=== PATIENT | female | born 1945 | race Caucasian/White ===

== ENCOUNTER → 2019-10-05 | Outpatient (CLI) | payer OTHER ==
[~2019-10-05] MED LIST: ASA81BEC PO; ASPIRIN325 PO; BENADRYL25 MG PO; CELEBREX 200 M200 M1 PO; COLACE100 MG PO; DUREZOL5 ML OP; ESTRADIOL42.5 GM VAG; FLUOCINONI0.05 %/30 TOP; ILEVRO1.7 ML OP; LEVOTHYROXIN0.112 M1 PO; LIPITOR 20 MG T20 M1 PO; MEGA BIOTIN10000 MCG PO; MULTIPLE VITAM1 EAC2 PO; NEURONTIN 300300 M1 PO; NEURONTIN 300M300 M2 PO; PERCOCET PO; PRESERVISION A1 EAC2 PO; PROTONIX40 M1 PO; TYLENOL325 MG PO; XARELTO10 MG PO; ZYRTEC10 M4 PO
== END ==
LOC: M.LAB 09:54
PROVIDERS: ATTEND Internal Medicine Gastroenterology
DX: Z01.812 Encounter for preprocedural laboratory examination (principal); Z11.59 Encounter for screening for other viral diseases

== ENCOUNTER → 2019-10-10 | Day surgery (SDC) | payer OTHER ==
--- NOTE | ~2019-10-10 | PROC ---
[facility] [address] [place] [address] PROCEDURE REPORT Name: MIGUEL HUANG Room: [facility].#: [id number] Admission: 10/10/19 Attend Phys: Rowdy Peoples DO Discharge: Date of : 43 Report #: [id number] THIS REPORT FOR: //name// cc: Kerrie Huang Tara DO ~ THIS REPORT FOR: //name// For GI report, please see the Provation report in Perceptive 7 content. By: 0705Medical Records Staff HECTOR /DREW
[2019-10-10 09:04] LABS: HEMATOCRIT 44.7 % (37.0-47.0); HEMOGLOBIN 15.1 gm/dL (12.0-15.0); MCH 31.4 pg (26.0-34.0); MCHC 33.8 g/dL (28.0-37.0); MCV 92.9 fL (80.0-100.0); RBC 4.82 mil/uL (4.20-5.00); RDW-CV 14.7 % (10.5-14.5); WBC 7.6 thou/uL (4.0-11.0)
[2019-10-10 09:08] LABS: CREATININE 1.1 mg/dL (0.6-1.3); POTASSIUM 3.8 mmol/L (3.5-5.1)
--- NOTE | 2019-10-10 10:51 | EKG ---
[place] [address] ELECTROCARDIOGRAM REPORT Name: MIGUEL HUANG Room: 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 : 1945 Requested By: Rowdy Peoples Order Number: [id number] Reading MD: Avila Welsh Measurements Intervals Reedy Rate: 140 P: NH: QRS: -33 QRSD: 99 T: -6 QT: 331 QTc: 505 Interpretive Statements Atrial fibrillation Left axis deviation Abnormal R-wave progression, late transition Repolarization abnormality, prob rate related Prolonged QT interval Baseline wander in lead(s) I,II,III,aVR,aVL,aVF,V2,V3,V4,V5,V6 Compared to ECG 12/04/14 Prolonged QT interval now present Sinus rhythm no longer present Electronically Signed On 10-10-2019 10:51:12 CDT by Avila Welsh [email or web address] <ELECTRONICALLY SIGNED> By: Avila Welsh MD, [facility] 10/10/19 1051 5 5 Avila Welsh MD, [facility] /EPI
--- NOTE | 2019-10-10 13:30 | NUR ---
Pt arrived and was noted on VS to be in A-fib RVR at rate of 144. EKG preformed and confirmed findings. Anes Dr. Cohen was notifed who placed colonoscopy on hold. Contacted Dr. Peoples and orders were given for consulting Cardiology and if needing to be admitted the Hospitalist. At 0940 I spoke with Martha from cardiology and she informed us that Dr. Welsh was on for consults and was in procedure. I had also told her that patient at this time was not having procedure. Pt then was noted on monitor to have converted back to sinus tach with rate of 95. Paged Dr. Diaz of possible admission and he came to see pt. 1045 Dr. Warren here to see pt and requested me to call Cardiology to get ETA of consult potential time. Called and left message for Martha. contacted Martha and Dr. Lind 3601 Dr. Lind came to see patient and OK'd pt for colonoscopy today and for her to follow up with Cardiology. Pt wants to use [facility] cardiology. I called Dr. Kerrie Puente's office and left message for Winifred. Faxed to Dr. West office the EKG and Lab request.
--- NOTE | 2019-10-10 16:36 | CON ---
[address] [address] CONSULTATION Name: MIGUEL PUENTE Room: [facility].#: [id number] Admission: 10/10/19 Attend Phys: Rowdy Peoples DO Discharge: Date of : 43 Report #: [id number] THIS REPORT FOR: //name// cc: Kerrie Puente Tara DO THIS REPORT FOR: //name// CC: Rwody Jimenez DO INDICATION: Atrial fibrillation with rapid ventricular response rate. HISTORY OF PRESENT ILLNESS: The patient is a very pleasant 73-year-old white female with no prior cardiac history. She was brought to the Preanesthesia Care Unit this morning for colonoscopy. She was found to be in atrial fibrillation with rapid ventricular response rate. With this, she notices some palpitations, but no chest pain or shortness of breath. She states this started at approximately 4:00 in the morning and persisted until arrival here. She spontaneously converted back to sinus rhythm while being observed. She denies any prior episodes similar to this. She takes atorvastatin for cholesterol. She denies any history of hypertension or diabetes. PAST MEDICAL HISTORY: Hyperlipidemia and hypothyroidism. She has degenerative joint disease. PAST SURGICAL HISTORY: Bilateral knee replacements and previous surgery for vulvar cancer. SOCIAL HISTORY: The patient is a nonsmoker. She does not drink alcohol. ALLERGIES: None documented. CURRENT MEDICATIONS: Tylenol p.r.n., atorvastatin 20 mg daily, aspirin 81 mg daily, Celebrex 20 mg daily, estrogen cream topically as directed, fluocinonide topically as directed, gabapentin 300 mg t.i.d., levothyroxine 112 mcg daily, multivitamin 1 tablet daily, PreserVision capsules daily. PHYSICAL EXAMINATION: VITAL SIGNS: Stable. Heart rate currently 70 and regular. Blood pressure 142/96. GENERAL: This is a pleasant lady in no distress. Mood and affect appropriate. HEENT: Extraocular muscles are intact. Mucous membranes are moist. NECK: Shows no jugular venous distention. CHEST: Reveals clear lung nuñez without wheezes or rales. CARDIOVASCULAR: Reveals a regular rhythm with normal S1 [place] [address] CONSULTATION Name: MIGUEL PUENTE Room: [facility]#: [id number] Admission: 10/10/19 Attend Phys: Rowdy Peoples DO Discharge: Date of : 43 Report #: [id number] appreciate gallop or murmur. ABDOMEN: Reveals normal bowel sounds. The abdomen is soft and nontender. EXTREMITIES: Shows no edema. SKIN: Dry. IMPRESSION AND RECOMMENDATIONS: 1. Paroxysmal atrial fibrillation. First episode. CHADS score is presently 1. 2. Follow up with [facility] Cardiology as an outpatient. She has reverted to normal sinus rhythm without intervention at this time. 3. Dyslipidemia, on atorvastatin daily. 4. The patient is scheduled for colonoscopy. She is cleared from a cardiac standpoint to proceed with colonoscopy and further cardiac evaluation at this time. <ELECTRONICALLY SIGNED> By: Mauri Lind MD, FACC 10/10/19 1636 1227 1242Miclo Lind MD, FACC /nt
--- NOTE | 2019-10-12 13:08 | PATH ---
[facility] [address] [place] [address] PATHOLOGY RPT PROCEDURE Name: MIGUEL PUENTE Room: [facility] M.R.#: [id number] Admission: 10/10/19 Date of : 43 Discharge: Report #: [id number] Path Case #: [id number] [facility] Accession Number: [id number] . 01 Material submitted: . PART A: colon - DISTAL SIGMOID POLYPS. Modifiers: distal, sigmoid PART B: rectum - RECTAL POLYP . 01 Clinical history: . Colon cancer screening . 02 Diagnosis: A. Distal sigmoid polyps: - One tubular adenoma and two segments of hyperplastic polyp(s), negative for high-grade dysplasia. . B. Rectal polyp: - Hyperplastic polyp. . (SONJA:madhavi; 10/12/2019) MBR 10/12/2019 1052 Local . 02 Electronically signed: . Phil Jessica MD, Pathologist NPI- [id number] . 01 Gross description: . A. The specimen is received in formalin, labeled "Miguel Puente, distal sigmoid polyps". Received are three segments of pale kuhn soft tissue ranging in size from 0.3 to 1.0 cm in maximum dimensions. The specimen is submitted entirely in cassette A1. . B. The specimen is received in formalin, labeled "Miguel Puente, rectal polyp". Received is a segment of pale kuhn soft tissue measuring 0.4 cm in maximum dimensions. The specimen is submitted entirely in cassette B1. (CAA; 10/11/2019) QAC/QAC 10/11/2019 1328 Local . 02 Pathologist provided ICD-10: D12.5, K63.5, K62.1 . 02 CPT . 878130, 726012 Specimen Comment: A courtesy copy of this report has been sent to [phone] Specimen Comment: [id number] Specimen Comment: Report sent to / DR PUENTE Performed at: [address] [place] [address] PATHOLOGY RPT PROCEDURE Name: MIGUEL PUENTE Room: [facility]#: [id number] Admission: 10/10/19 Date of : 43 Discharge: Report #: [id number] Path Case #: [id number] [facility] [place] [address] [place] [address] [address], [place], [place] [id number] MD Kory Mackey MD Phone: [phone] Performed at: 02 [facility] [address] [place], [place], [place] [id number] MD Phil Jessica MD Phone: [phone]
== END | disposition home or self-care (01) ==
LOC: M.SUR 05:57
PROVIDERS: ATTEND Internal Medicine Gastroenterology
DX: Z12.11 Encounter for screening for malignant neoplasm of colon (principal); D12.5 Benign neoplasm of sigmoid colon; K57.30 Diverticulosis of large intestine without perforation or abscess without bleeding; K62.1 Rectal polyp; Z86.010 Personal history of colon polyps; Z79.899 Other long term (current) drug therapy; Z98.890 Other specified postprocedural states